=== PATIENT | female | born 1950 | race Caucasian/White ===

== ENCOUNTER 2024-05-05 07:51 | Outpatient (REF) | payer SELFPAY ==
--- NOTE | 2024-05-05 09:36 | MHC.AU.HA3 ---
Hearing Instrument Follow-Up- Binaural Date of Visit: 05/05/24 Left Ear: Make, Model, Color, Serial Number: Kushal Cadena 2400 SN [id number] [employer] Professor Repair Warranty: unknown - out of warranty [employer] Professor Loss and Damage Warranty: unknown - out of warranty [facility] Service Plan: N/A Battery Size: Rechargeable Salary [employer] Wage Administrator/Slim Tube: 2 50g Earmold/Dome/CShell/SlimTip: 7mm occluded Type of Wax Guard: HearClear Dispensed By: [facility] Date of Fitting: June 2019 Follow-Up Summary: Estevan is transferring care to our office. She has one left sided Kushal Cadena 2400 that needs a battery replacement (gets battery indicator after an hour), and she lost her right hearing aid about 6 months ago. She states she sometimes wears her husbands right GARLAND that he never uses, but she knows this is not recommended. Discussed options for new hearing aids versus out of warranty repair ($330). She decided to repair for now, and will bring in her husbands hearing aid to have it programmed for her, understanding mismatched hearing aids are not ideal but will work for her until she can get a new pair. Also recommended an updated hearing evaluation, she states she will contact her PCP for an order. Will call once Kushal aid is back from repair, WILL NEED 1 HOUR HAF APPT ONCE IT IS BACK FROM REPAIR. 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 Recommendations: Recommendations: Patient will be contacted when materials have arrived. Diagnosis Code(s): Primary Diagnosis: H90.3 Bilateral Sensorineural Hearing Loss Signature: Provider: Fab Ricardo, [facility]
== END 2024-05-05 07:52 | disposition home or self-care (01) ==
LOC: HO.HAP 07:51
PROVIDERS: Visit Provider Family Medicine
DX: Z13.89 Encounter for screening for other disorder (principal)

== ENCOUNTER 2024-05-25 15:24 | Outpatient (REF) | payer SELFPAY | END 2024-05-25 15:25 | disposition home or self-care (01) | LOC: HO.HAP 15:24 | PROVIDERS: Visit Provider Family Medicine | DX: Z46.1 Encounter for fitting and adjustment of hearing aid (principal); H90.3 Sensorineural hearing loss, bilateral | CPT/HCPCS: V5014 ==